=== PATIENT | male | born 1960 | race Two or more races ===

== ENCOUNTER 2021-09-24 18:10 | Emergency (ER) | payer SELFPAY ==
[~2021-09-24] VITALS: Ht 175.3 cm; Wt 100.0 kg
[2021-09-24] MEDS ORDERED: KETOROLAC TROMETHAMINE 30 MG/ML VIAL IM ONE (19:45)
[2021-09-24] MEDS ORDERED: CYCLOBENZAPRINE HCL 10 MG TABLET PO ONE (19:45)
[2021-09-24] MEDS ORDERED: LIDOCAINE 5% TRANSDERMAL PATCH TD ONE (19:45)
[2021-09-24 21:30] VITALS: BP 145/77
== END 2021-09-24 22:42 | disposition home or self-care (01) ==
LOC: EMS 18:13
DX: S39.012A Strain of muscle, fascia and tendon of lower back, initial encounter (principal); V29.9XXA Motorcycle rider (driver) (passenger) injured in unspecified traffic accident, initial encounter; K70.9 Alcoholic liver disease, unspecified; Y93.89 Activity, other specified; Y92.89 Other specified places as the place of occurrence of the external cause; Y99.8 Other external cause status
CPT/HCPCS: 96372; 99283; J1885